=== PATIENT | male | born 1975 | race Caucasian/White ===

== ENCOUNTER 2019-01-27 13:10 | Emergency (ER) | payer OTHER, SELFPAY ==
[2019-01-27 13:11] VITALS: BP 126/80; PULSE 56; RESP 15; TEMP 36.2; O2SAT 97; BMI 25.0
--- NOTE | 2019-01-27 14:15 | CT_ITS ---
STUDY: CT ABDOMEN AND PELVIS WITH CONTRAST REASON FOR EXAM: Male, 43 years old. One-week history of abdominal pain. RADIATION DOSAGE (If Supplied By Facility): CTDIvol = ( 17.73 ) mGy, DLP = ( 1009.12 ) mGycm TECHNIQUE: Transaxial images were obtained from the dome of the diaphragm to the symphysis pubis without oral contrast. Isovue 300 100mL IV was administered. Sagittal and coronal images were reconstructed. Individualized dose optimization techniques were used for this CT. COMPARISON: None. FINDINGS: The visualized lung bases are unremarkable. The visualized portions of the heart are within normal limits. Normal liver. Normal gallbladder and extrahepatic biliary system. Normal spleen. Normal pancreas. Normal bilateral adrenal glands. 3 cm x 3 cm cyst in the lower pole of the right kidney. Normal left kidney. There is a retroaortic left renal vein. There is a small hiatal hernia. Normal small intestine. Normal colon. The appendix is visualized and appears normal. Normal abdominal aorta. Normal inferior vena cava. There is borderline retroperitoneal lymphadenopathy with enlarged nodes no greater than 10mm in the short axis diameter. Distended urinary bladder. There is a small umbilical hernia containing fat. Small left inguinal hernia containing fat. Normal osseous structures. CT/Abdomen/Pelvis W IV Cont ONLY IMPRESSION: Small umbilical hernia containing fat as well as a small left inguinal hernia containing fat. Distended urinary bladder. Electronically Signed: Law Navarro, at 15:56 EST , Service support ,
[2019-01-27] MEDS: 0.9% Normal Saline 1,000 ML 1000 ML IV (14:35)
[2019-01-27 14:48] LABS: Absolute Lymphocyte Count 1.92 X10^3/ul (0.83-4.51); Absolute Neutrophil Count 3.9 X10^3/uL (2.0-7.7); Basophil# 0.03 X10^3/uL; Basophil% 0.5 % (0-1); Eosinophil# 0.19 X10^3/uL; Eosinophils% 2.9 % (0-5); Hemoglobin 15.6 g/dl (13.0-16.5); Lymphocyte # 1.92 X10^3/ul (4.0); Lymphocyte % 28.9 % (19-41); Mean Corp Hgb Conc 33.9 g/gl (32-36); Mean Corpuscular Hgb 29.2 pg (27.0-32.0); Mean Corpuscular Volume 86.1 fL (80-94); Mean Platelet Vol. 9.9 fl (6.2-12.0); Monocyte# 0.57 X10^3/uL; Monocyte% 8.6 % (0-10); Neutrophil # 3.94 X10^3/uL (2.7-7.7); Neutrophil % 59.1 % (47-70); Platelet Count 247 K/mm3 (150-450); RBC Distribution Width CV 13.1 % (11.6-14.6); Red Blood Count 5.34 M/mm3 (4.6-6.2); White Blood Count 6.7 K/mm3 (4.4-11.0)
[2019-01-27 14:49] LABS: POSITIVE COUNT NO; POSITIVE DIFFERENTIAL NO; POSITIVE MORPHOLOGY NO
[2019-01-27 15:02] LABS: ALB/GLOB Ratio 1.1 RATIO (0.9-2.4); AST(SGOT) 32 U/L (15-37); Alanine Aminotransfer ALT/SGPT 28 U/L (16-61); Albumin, Serum 4.6 g/dL (3.2-5.0); Alkaline Phosphatase 77 U/L (45-117); Anion Gap 9 (5-15); BUN 19 mg/dL (7-18); BUN/Creat Ratio 20.5 RATIO (10-20); Calcium,Total 9.5 mg/dL (8.5-10.1); Chloride 100 mmol/L (98-107); Creatinine, Serum 0.93 mg/dL (0.70-1.30); EST Glomerular Filtration Rate 95 mL/min (>60); Est Glom Filt Rate - Afr Amer 115 mL/min (>60); Estimated Creatinine Clearance 116.94 ml/min; Globulin 4.2 g/dL (2.2-4.2); Glucose 88 mg/dL (74-106); Lipase 200 U/L (73-393); Protein, Total 8.8 g/dL (6.4-8.2); Sodium Level 139 mmol/L (136-145)
--- NOTE | 2019-01-27 15:46 | ED.DCSUM_ITS ---
- ER Visit Summary Date of Service: 01/27/19 Chief Complaint: Hernia History of Present Illness: The patient is a 43 M with a history of a hernia status post repair years ago. He presents with umbilical pain and can feel a mass. He is concerned for recurrent hernia. His PCP referred him the ED as he could not arrange outpatient follow-up emergently. He was concern for strangulation or incarceration. Patient also reports some anterior abdominal wall redness. This has been going on for several days. He denies applying heat or anything to the area. No other associated symptoms. Physical Examination: Afebrile and vital signs unremarkable. Alert and oriented. No acute distress. Heart regular rate and rhythm. Lungs clear. Abdomen tender in the umbilical region. There is a mobile mass approximately 1 cm in diameter. Nonreducible. There is erythema to his anterior abdominal wall. This is not confluent. There is no warmth or drainage. Otherwise exam unremarkable. Test Results: CBC, CMP, lipase unremarkable. CT pending. Emergency Department Course and Treatment: Patient was treated with IV fluids. He declined pain medicine. Labs were unremarkable. CT is pending and the oncoming doctor will check for mass, hernia, or any other issues. Regarding his abdominal wall redness. I do not believe this is directly related to a hernia. It does not appear to be cellulitis. His doctor thought it might be a dermatitis or irritation. I agree with this assessment. He may use topical remedies for this. Monitor for spreading redness, warmth, signs of infection. Follow-up with primary care for this issue. Patient does not have an established surgeon currently should he need a referral. Treatment Plan: As above Disposition: Pending CT results Impression: 1. Abdominal pain This note was generated with [employer] dictation software. It may contain incorrect words, spelling, and punctuation that were not noted in review of the chart prior to signing ED Disposition - Plan for ED Patient: Referrals: Jasson Vasquez MD [Primary Care Provider] -
[2019-01-27 15:56] VITALS: BP 130/84; PULSE 75; O2SAT 99
--- NOTE | 2019-01-27 16:45 | ED.DEP ---
ED Disposition - Plan for ED Patient: Disposition: Home or Assisted Living Instructions: ED Hernia Inguinal Referrals: Jasson Vasquez MD [Primary Care Provider] - As Needed Evelio Mendoza MD [STAFF PHYSICIAN] - As soon as possible Additional Instructions: Follow-up with Dr. Mendoza a local general surgeon at work for [facility] for evaluation of both your bellybutton hernia and your left groin hernia. Tylenol and Motrin for pain.
[2019-01-27 16:57] VITALS: PULSE 83; RESP 14
== END 2019-01-27 16:57 | disposition home or self-care (01) ==
PROVIDERS: Emergency Provider Emergency Medicine; Family Provider Family Medicine; PCP Family Medicine
DX: K42.9 Umbilical hernia without obstruction or gangrene (principal); K40.90 Unilateral inguinal hernia, without obstruction or gangrene, not specified as recurrent
CPT/HCPCS: 74177; 80053; 83690; 85025; 96360; 99283; J7030; Q9967; A4216

== ENCOUNTER → 2019-04-28 09:55 | Outpatient (CLI) | payer OTHER, SELFPAY ==
[2019-02-01 13:12] VITALS: BMI 25.0
[2019-05-05 08:31] LABS: Fats, Neutral Normal (.); Fats, Total Normal (.)
== END ==
PROVIDERS: Family Provider Family Medicine; PCP Family Medicine; Referring Provider Family Medicine; Visit Provider Family Medicine
DX: R19.7 Diarrhea, unspecified (principal)
CPT/HCPCS: 82705; 83630; 87177; 87209; 87493; 87506

== ENCOUNTER 2019-07-03 18:23 | Observation (INO) | payer OTHER, SELFPAY ==
[2019-02-01 13:12] VITALS: BMI 25.0
[2019-07-03] VITALS (7 sets, daily range): BP systolic 117–134; BP diastolic 74–89; PULSE 52–79; RESP 15–18; TEMP 36.4–36.6; O2SAT 97–100; BMI 23.9; BMI 23.8
--- NOTE | 2019-07-03 18:58 | EKG12_ITS ---
Test Reason : SYNCOPE Blood Pressure : / mmHG Vent. Rate : 051 BPM Atrial Rate : 051 BPM P-R Int : 162 ms QRS Dur : 112 ms QT Int : 422 ms P-R-T Axes : 060 021 023 degrees QTc Int : 388 ms Sinus bradycardia with Premature supraventricular complexes Early repolarization Otherwise normal ECG Confirmed by SEAN POTTS, YANET ([id number]), business editor MARLENI JOHNSON ([id number]) on 07/06/2019 10:21:16 AM Referred By: Milton Madrid Confirmed By:YANET ESTRADA MD
--- NOTE | 2019-07-03 18:58 | RAD_ITS ---
STUDY: X-RAY CHEST REASON FOR EXAM: Male, 44 years old. Syncope and asthma TECHNIQUE: Single frontal view of the chest. COMPARISON: None. FINDINGS: The lungs are clear and expanded. There is no demonstrated pleural abnormality. Normal size heart. Normal mediastinum and ellie. Normal visualized pulmonary arteries. Normal visualized aortic arch and descending thoracic aorta. Normal visualized thoracic spine. Normal visualized ribs, clavicles, and shoulders. There is no demonstrated abnormality of the visualized soft tissue structures of the upper abdomen. RAD/Chest 1 View (Portable) IMPRESSION: Normal x-ray examination of the chest. Electronically Signed: Emil Waldron MD at 19:25 EDT , Service support ,
--- NOTE | 2019-07-03 18:58 | CT_ITS ---
STUDY: CT BRAIN WITHOUT CONTRAST REASON FOR EXAM: Male, 44 years old. Syncope and left-sided head laceration RADIATION DOSAGE (If Supplied By Facility): CTDIvol = ( 44.99 ) mGy, DLP = ( 779.24 ) mGycm TECHNIQUE: Transaxial CT imaging of the brain was performed without administration of intravenous contrast material. Individualized dose optimization techniques were used for this CT. COMPARISON: No relevant priors. FINDINGS: Normal soft tissue structures. Normal calvarium. Normal size ventricles and extra-axial spaces for the patient's age. Normal white matter tracts of the cerebral hemispheres. Normal basal ganglia and thalami. Normal brainstem. Normal cerebellum. There is no intracranial hemorrhage. There are no findings of an acute ischemic infarction. Normal visualized paranasal sinuses. CT/Brain/Head without Contrast IMPRESSION: Normal unenhanced CT scan of the brain. Electronically Signed: Emil Waldron MD at 19:53 EDT , Service support ,
[2019-07-03] MEDS: 0.9% Normal Saline 1,000 ML 1000 ML IV (19:00)
[2019-07-03 19:22] LABS: Absolute Lymphocyte Count 2.11 X10^3/uL (0.83-4.51); Absolute Neutrophil Count 7.2 X10^3/uL (2.0-7.7); Basophil# 0.05 X10^3/uL; Basophil% 0.5 % (0-1); Hematocrit 44.6 % (40-54); Hemoglobin 15.2 g/dL (13.0-16.5); Lymphocyte # 2.11 X10^3/ul (4.0); Lymphocyte % 20.6 % (19-41); Mean Corp Hgb Conc 34.1 g/dL (32-36); Mean Corpuscular Hgb 28.8 pg (27.0-32.0); Mean Corpuscular Volume 84.6 fL (80-94); Mean Platelet Vol. 9.9 fl (6.2-12.0); Monocyte# 0.75 X10^3/uL; Monocyte% 7.3 % (0-10); NRBC Flagged by Analyzer 0 % (0-5); Neutrophil % 70.4 % (47-70); Platelet Count 262 K/mm3 (150-450); RBC Distribution Width CV 13.1 % (11.6-14.6); RBC Distribution Width SD 40.2 fl (35.1-43.9); Red Blood Count 5.27 M/mm3 (4.6-6.2); White Blood Count 10.2 K/mm3 (4.4-11.0)
[2019-07-03 19:36] LABS: D-Dimer Quantitative (DVT/PE) 0.66 FEU/ug/m (0.27-0.49)
[2019-07-03 19:38] LABS: Anion Gap 5 (5-15); BUN 19 mg/dL (7-18); BUN/Creat Ratio 14.1 RATIO (10-20); Calcium,Total 9.5 mg/dL (8.5-10.1); Chloride 102 mmol/L (98-107); Creatinine, Serum 1.35 mg/dL (0.70-1.30); EST Glomerular Filtration Rate 61 mL/min (>60); Est Glom Filt Rate - Afr Amer 74 mL/min (>60); Estimated Creatinine Clearance 82.03 ml/min; Glucose 117 mg/dL (74-106); Potassium 3.9 mmol/L (3.5-5.1); Sodium Level 136 mmol/L (136-145)
[2019-07-03] MEDS: Diphth,Pertuss(Acell),Tet Vac 0.5 ML Vial IM (19:39)
--- NOTE | 2019-07-03 19:43 | CT_ITS ---
STUDY: CTA CHEST REASON FOR EXAM: Male, 44 years old. Syncope RADIATION DOSAGE (If Supplied By Facility): CTDIvol = ( 9.44 ) mGy, DLP = ( 343.90 ) mGycm TECHNIQUE: The examination was performed with the intravenous administration of 100 IV Isovue 370. Post-processing of the angiographic images was performed, with multiplanar reformation and 3D reconstruction. Individualized dose optimization techniques were used for this CT. COMPARISON: Chest x-ray from today FINDINGS: Normal enhancement of the main pulmonary artery and right and left pulmonary arteries. Normal enhancement of the bilateral peripheral pulmonary arteries. There is no demonstrated pulmonary embolism. Normal thoracic aorta and visualized great vessels. There is no demonstrated aortic dissection. Normal heart and pericardium. Calcific coronary artery disease. Normal mediastinum. Normal hilar regions. Normal visualized trachea and bronchi. The lungs are well expanded. Normal pulmonary parenchyma. Normal pleura. Normal chest wall structures. Normal osseous structures. Normal visualized upper abdomen. CT/CTA Chest W/WO Contrast IMPRESSION: Calcific coronary artery disease. No acute disease. Electronically Signed: Emil Waldron MD at 21:03 EDT , Service support ,
[2019-07-03] MEDS: Aspirin 81 MG TAB.CHEW 324 MG PO (21:53)
--- NOTE | 2019-07-03 22:20 | PCM.HP.STD ---
Problem List (1) Syncope and collapse Status: Acute (2) Laceration on head Status: Acute (3) History of allergy, EpiPen Status: Chronic (4) Asthma Status: Chronic History of Present Illness Date of Admission: 07/03/19 Chief Complaint: Syncope and collapse. The patient is a 44 year old M with history of asthma was brought into ER after he had syncope and collapse in [facility]. Prior to that, patient had 50 miles bike right and felt dizzy about 5 to 10 minutes prior to passing out. Total duration of syncope is unclear or probably short seconds to minutes. Patient fell and hit the head and had a small laceration about 1 cm with surrounding edema in the left parieto-occipital region. No chest pain. When patient woke up, he was having sweats and felt like dreaming otherwise no significant symptoms like involuntary movement, seizure-like, urinary or fecal incontinence, chest pain, shortness of breath or palpitations/irregular heart Patient had prior syncope in March 2019 after he was having diarrhea for 5 days and 1 of his friend had Salmonella infection at that time. He denies lower urinary tract symptoms, nausea vomiting or diarrhea. [] Past Medical History Past Medical History (Chronic Problems): Chronic Problems (Last Updated 02/01/19 @ 13:11 by Mariposa Barahona) History of allergy, EpiPen (Chronic) Asthma (Chronic) Medical History: Medical History (Last Updated 02/01/19 @ 13:11 by Mariposa Barahona) Anxiety and depression F41.9, F32.9 Celiac disease K90.0 Exercise-induced asthma J45.990 Left inguinal hernia K40.90 Umbilical hernia K42.9 Allergies legumes Allergy (Verified 07/03/19 18:27) Unknown peanut Allergy (Verified 07/03/19 18:27) Anaphylaxis Home Medications: Ambulatory Orders Medication Instructions Recorded Epi Pen (for allergic rxn) [Epi 0.3 mg IM X1 #2 syringe 10/11/14 Pen] Montelukast [Singulair] 10 mg PO DAILY 10/11/14 Albuterol IH (ProAir) [Proair Hfa] 1 puff PO Q4H PRN 01/27/19 Sertraline HCl 50 mg PO DAILY 01/27/19 cholecalciferol (vitamin D3) 50,000 unit PO QWEEK 02/01/19 50,000 unit capsule multivitamin tablet 1 tab PO DAILY 02/01/19 zinc 50 mg tablet 50 mg PO DAILY 02/01/19 Lactobacillus Combo No.10 1 ea PO DAILY 07/03/19 [Probiotic] Surgical History: Surgical History (Last Updated 02/01/19 @ 13:08 by Mariposa Barahona) History of esophagogastroduodenoscopy (EGD) Z98.890 History of umbilical hernia repair Z98.890, Z87.19 History of wisdom tooth extraction K08.409 Smoking Status: Former smoker - *Family History Paternal Family History: Family History (Last Updated 02/01/19 @ 13:09 by aMriposa Barahnoa) Father Heart disease Myocardial infarction Mother Celiac disease Sister Celiac disease Review of Systems Constitutional: Denies: Chills, Fever, Weight Change HEENT: Denies: Head Aches, Sinus Congestion, Sinus Drainage Cardiovascular: Reports: Syncope. Denies: Chest Pain, Palpitations Respiratory: Denies: Cough, Shortness of breath at rest, Sputum production Gastrointestinal: Reports: Nausea. Denies: Abdominal Pain, Vomiting Genitourinary: Denies: Dysuria Musculoskeletal: Denies: Joint Pain, Joint Tenderness Skin: Reports: Wounds. Denies: Rash Neurological: Denies: Numbness, Tingling, Focal weakness Psychiatric: Denies: Anxiety, Depression, Homicidal Ideations, Suicidal Ideations Hematologic/ Lymphatic: Denies: Easy Bruising, Easy Bleeding VTE Information - Inpt Only VTE Present on Admission: No VTE Mechan Device Prophylaxis: None VTE Pharm Prophylaxis ordered?: Yes Patient Problems: Active and Suspected Problems (Last Updated 02/01/19 @ 13:11 by Mariposa Barahona) Syncope and collapse (Acute) Laceration on head (Acute) - Physical Exam General: Alert, Oriented x3, Cooperative HEENT: Atraumatic, PERRLA, EOMI, Normocephalic Oral: No Gingival or Mucosal Lesions/ Ulcerations, Dry Mucosa Neck: Supple, No JVD, Negative Carotid Bruits Lungs: Clear to auscultation, Normal air movement, No rhonchi, No wheeze, No rales Cardiovascular: Regular rate, Regular Rhythm, Normal S1, Normal S2, No murmurs Abdomen: Bowel Sounds Present, Soft, Non Tender, Non-Distended Extremities: No edema, Capillary Refill Less than 3 Seconds Skin: No rashes, Ulcer/ Wound - Small laceration about 1 cm left parieto-occipital region of his scalp. It was stapled in ER Musculoskeletal: No Tenderness to Palpation of Joints or Extremities, Arthritic Changes Lymphatic: No Cervical, Supraclavicular, or Inguinal Adenopathy Neurological: Cranial nerves II-XII grossly intact, Deep Tendon Reflexes 2+/4 and Symmetrical, Neuro grossly intact, Motor Exam 5/5 strength throughout Psych/Mental Status: Normal Affect, Appropriate Vital Signs Temp Pulse Resp BP Pulse Ox 97.9 F 66 18 117/81 H 97 07/03/19 18:24 07/03/19 21:41 07/03/19 21:41 07/03/19 21:41 07/03/19 21:41 Oxygen Delivery Method Room Air Weight: 186 lb 11.704 oz Body Mass Index (BMI) 23.9 Laboratory Tests Past 24 Hrs 07/03/19 07/03/19 07/03/19 19:14 19:14 19:14 WBC 10.2 RBC 5.27 Hgb 15.2 Hct 44.6 MCV 84.6 MCH 28.8 MCHC 34.1 RDW Std Deviation 40.2 RDW Coeff of Kenneth 13.1 Plt Count 262 MPV 9.9 Immature Gran % (Auto) 0.200 Neut % (Auto) 70.4 H Lymph % (Auto) 20.6 Caroline % (Auto) 7.3 Eos % (Auto) 1.0 Baso % (Auto) 0.5 Absolute Neuts (auto) 7.2 Absolute Lymphs (auto) 2.11 Nucleated RBC % 0 D-Dimer Quant (PE/DVT) 0.66 H* Sodium 136 Potassium 3.9 Chloride 102 Carbon Dioxide 29.0 Anion Gap 5 BUN 19 H Creatinine 1.35 H Estim Creat Clear Calc 82.03 Est GFR (MDRD) Af Amer 74 Est GFR (MDRD) Non-Af 61 BUN/Creatinine Ratio 14.1 Glucose 117 H Calcium 9.5 Troponin I 0.208 H Assessment/Plan All Active Problems (Last Updated 02/01/19 @ 13:11 by Mariposa Barahona) Syncope and collapse (Acute) Laceration on head (Acute) This is a 44-year-old gentleman is being admitted for syncope of short duration and collapse with a small laceration wound over left parieto-occipital region. 1. Syncope and collapse, etiology unclear possible vasovagal: Patient is being admitted in PCU. Patient had elevated d-dimer and CTPA was done which is negative. Incidental finding of calcific coronary artery disease found. No acute disease no PE. Troponin is elevated 0.2. Serial cardiac enzymes. 2D echo ordered for tomorrow a.m. Orthostatic blood pressure does not show any major change but heart rate went up from 59 lying position to 79 in the standing position. This does not meet criteria for POTS but possible secondary to dehydration. 2. Mild prerenal azotemia with dehydration: BUN/creatinine 19/135 with mild prerenal azotemia. Previous creatinine was 0.93 in 12/2018. IV fluid normal saline at 150 mils per hour for total of 2 L. Patient already got 1 L of normal 7 bolus in ED. 3. Elevated troponin: Serial troponin enzymes rest as mentioned above. His father has a history of coronary artery disease. 4. Other comorbidities include history of asthma and allergy: Home medications continued. Patient is on albuterol inhaler, Singulair, EpiPen and multivitamin. DVT prophylaxis: On Lovenox 40 mg subcu daily. Laboratory Results 07/03/19 19:14: WBC 10.2, RBC 5.27, Hgb 15.2, Hct 44.6, MCV 84.6, MCH 28.8, MCHC 34.1, RDW Std Deviation 40.2, RDW Coeff of Kenneth 13.1, Plt Count 262, MPV 9.9, Immature Gran % (Auto) 0.200, Neut % (Auto) 70.4 H, Lymph % (Auto) 20.6, Caroline % (Auto) 7.3, Eos % (Auto) 1.0, Baso % (Auto) 0.5, Absolute Neuts (auto) 7.2, Absolute Lymphs (auto) 2.11, Nucleated RBC % 0 07/03/19 19:14: D-Dimer Quant (PE/DVT) 0.66 H* 07/03/19 19:14: Sodium 136, Potassium 3.9, Chloride 102, Carbon Dioxide 29.0, Anion Gap 5, BUN 19 H, Creatinine 1.35 H, Estim Creat Clear Calc 82.03, Est GFR (MDRD) Af Amer 74, Est GFR (MDRD) Non-Af 61, BUN/Creatinine Ratio 14.1, Glucose 117 H, Calcium 9.5, Troponin I 0.208 H Clinical Impression(s) from Imaging Studies Brain CT 07/03/19 18:58 IMPRESSION: Normal unenhanced CT scan of the brain. Chest X-Ray 07/03/19 18:58 IMPRESSION: Normal x-ray examination of the chest. Chest CTA 07/03/19 19:43 IMPRESSION: Calcific coronary artery disease. No acute disease. Code Visit OBSV E&M: 64097 Initial observation care L3
--- NOTE | 2019-07-03 22:28 | ED.DCSUM_ITS ---
- ER Visit Summary Date of Service: 07/03/19 Chief Complaint: Syncope History of Present Illness: The patient is a 44 M who presents after syncopal episode. The patient is previously healthy. He rides his bike frequently. He rode 50 miles today and had no issue. Afterwards he had some light activities. [email or web address] He was partway through his order when he lost consciousness. He fell and hit his head. He has a mild scalp laceration. No seizure activity. No other associated symptoms. He had recent travel to [place]. Denies any history of heart disease, PE, aortic disease. Physical Examination: Afebrile and vital signs unremarkable except heart rate was 63. Heart regular rate and rhythm. Lungs clear. Abdomen soft and nontender. Extremities unremarkable. He has a 1 center meter left scalp laceration. Cranial nerves grossly intact. Normal strength and sensation. Test Results: EKG showed a heart rate of 51, sinus rhythm with PACs. CBC unremarkable. Creatinine 1.35. Troponin 0 0.208. D-dimer 0.66. Chest x-ray was normal. Brain CT normal. CTA chest showed calcified coronary disease Emergency Department Course and Treatment: Patient had an EKG and was placed on a monitor. Orthostatics were negative. He was treated with IV fluids. Wound was cleaned and repaired with one single staple. D-dimer was elevated so CTA was performed. This showed coronary disease. He was treated with aspirin. Troponin was 0.208. He has a family history of coronary disease. Patient will be admitted for further care. Treatment Plan: As above Disposition: Admission Impression: 1. Syncope 2. Scalp laceration 1 cm This note was generated with [employer] dictation software. It may contain incorrect words, spelling, and punctuation that were not noted in review of the chart prior to signing ED Disposition - Plan for ED Patient: Disposition: Acute Care [facility]
--- NOTE | 2019-07-03 23:21 | EKG12_ITS ---
Test Reason : SYNCOPE Blood Pressure : / mmHG Vent. Rate : 057 BPM Atrial Rate : 057 BPM P-R Int : 156 ms QRS Dur : 108 ms QT Int : 420 ms P-R-T Axes : 065 006 030 degrees QTc Int : 408 ms Sinus bradycardia Early repolarization Otherwise normal ECG Confirmed by SEAN POTTS, YANET ([id number]), department editor MARLENI JOHNSON ([id number]) on 07/06/2019 2:24:09 PM Referred By: Milton Madrid Confirmed By:YANET ESTRADA MD
[2019-07-03] MEDS: Enoxaparin 40 MG/0.4 ML Syringe SC (23:41)
[2019-07-03] MEDS: 0.9% Normal Saline 1,000 ML 150 ML IV (23:41)
[2019-07-04 02:48] VITALS: BP 105/57; PULSE 54; RESP 16; TEMP 36.4; O2SAT 96
[2019-07-04 03:00] VITALS: PULSE 50
--- NOTE | 2019-07-04 05:55 | ECHOD_ITS ---
Reason For Study: SYNCOPE Procedure This was a 2D Doppler, Color Flow transthoracic echocardiogram. The exam was of adequate technical quality. Exam performed portable in patient room. Left Ventricle Normal LV size. Left ventricular systolic function is normal. The estimated ejection fraction is 55 %. No evidence for diastolic dysfunction. No regional wall motion abnormalities noted. Right Ventricle Normal RV size. Normal systolic function. Atria The left atrium is mildly enlarged. Normal right atrium. No doppler evidence for ASD. Mitral Valve There is no mitral annular calcification. Normal mitral valve. Trivial mitral valve insufficiency. Tricuspid Valve Normal tricuspid valve. Mild tricuspid valve insufficiency. Right ventricular systolic pressure estimated to be 25 mmHg. Aortic Valve Trisinus/trileaflet aortic valve. Normal aortic valve. Pulmonic Valve The pulmonic valve is not well visualized. Great Vessels Normal sized aortic root. Pericardium/Pleural No pericardial effusion. MMode/2D Measurements & Calculations LVIDd: 5.3 cm IVSd: 0.80 cm Ao root diam: 2.8 cm LVIDs: 3.6 cm LVPWd: 0.93 cm RVDd: 4.7 cm FS: 32.4 % LAV(MOD-bp): 76.7 ml LA A4 area: 24.3 cm2 LA dimension(2D): 4.2 cm LAV(MOD-bp) Indexed: 37.3 ml/m2 LAV(MOD-sp2): 65.2 ml LAV(MOD-sp4): 73.1 ml RA A4 area: 22.8 cm2 Time Measurements MV dec time: 0.24 sec Doppler Measurements & Calculations MV E max michael: 80.3 cm/sec Lat Peak E' Michael: 16.7 cm/sec Med Peak E' Michael: 14.7 cm/sec MV A max michael: 40.5 cm/sec E/E' lat: 4.8 E/E' med: 5.5 MV E/A: 2.0 Ao V2 max: 144.6 cm/sec LV V1 max: 124.0 cm/sec PA V2 max: 100.0 cm/sec Ao max P.4 mmHg LV V1 max P.1 mmHg TR max michael: 234.1 cm/sec TR max P.0 mmHg Interpretation Summary Left ventricular systolic function is normal. The estimated ejection fraction is 55 %. The left atrium is mildly enlarged. Trivial mitral valve insufficiency. Mild tricuspid valve insufficiency. Right ventricular systolic pressure estimated to be 25 mmHg. No evidence for diastolic dysfunction. Ordering Physician: Milton Madrid Referring Physician: MARCE GARCIA Performed By: Lesli Soliman, RENETTA, RVT
[2019-07-04] MEDS: 0.9% Normal Saline 1,000 ML 150 ML IV (06:15)
[2019-07-04 06:39] LABS: Anion Gap 7 (5-15); BUN 15 mg/dL (7-18); BUN/Creat Ratio 17.8 RATIO (10-20); Calcium,Total 8.6 mg/dL (8.5-10.1); Chloride 105 mmol/L (98-107); Creatinine, Serum 0.84 mg/dL (0.70-1.30); EST Glomerular Filtration Rate 105 mL/min (>60); Est Glom Filt Rate - Afr Amer 127 mL/min (>60); Estimated Creatinine Clearance 128.15 ml/min; Glucose 92 mg/dL (74-106); Sodium Level 140 mmol/L (136-145)
[2019-07-04 06:58] VITALS: O2SAT 94
[2019-07-04 08:00] VITALS: BP 111/71; BP 113/63; BP 117/69; PULSE 61; PULSE 62; PULSE 65
[2019-07-04 08:02] VITALS: BP 116/62; PULSE 62; RESP 16; TEMP 36.8; O2SAT 99
--- NOTE | 2019-07-04 11:05 | DCINST_ITS ---
- Discharge Diagnoses Current Active Problems: Current Active and Chronic Problems (Last Updated 02/01/19 @ 13:11 by Mariposa Barahona) Syncope and collapse (Acute) Laceration on head (Acute) History of allergy, EpiPen (Chronic) Asthma (Chronic) Reason(s) for Visit for Discharge Instructions: Syncope You will use the following diet at home:: Regular Your food should be the consistency of: Regular Your liquids should be the consistency of: Regular/Thin Discharge Activity: Return to Normal Activity Additional Instructions: Continue to hydrate yourself. Follow-up with your primary care doctor within a week or 2. Follow-up with cardiology as scheduled. Allergies/Adverse Reactions: Allergies legumes Allergy (Verified 07/03/19 18:27) Unknown peanut Allergy (Verified 07/03/19 18:27) Anaphylaxis Medications to take at Discharge Epi Pen (for allergic rxn) 0.3 mg IM X1 #2 syringe 10/11/14 Montelukast [Singulair] 10 mg PO DAILY 10/11/14 Albuterol IH (ProAir) [Proair Hfa] 1 puff PO Q4H PRN 01/27/19 Sertraline HCl 50 mg PO DAILY 01/27/19 cholecalciferol (vitamin D3) 50,000 unit capsule 2,000 unit PO QHS 02/01/19 multivitamin tablet 1 tab PO DAILY 02/01/19 zinc 50 mg tablet 50 mg PO DAILY 02/01/19 Lactobacillus Combo No.10 [Probiotic] 1 ea PO DAILY 07/03/19 Primary Care Physician: Jasson Vasquez MD [Primary Care Provider] - Please follow up with your Primary Care Physician in: within 1-2 weeks Test Results: Test results from this visit will be discussed in further detail at your follow- up appointment, if applicable. Please Follow Up With: Perlita Soto MD When: within 1-2 weeks Proposed Discharge Date: 07/04/19
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
--- NOTE | 2019-07-04 12:53 | CASEMGMT ---
Patient has advance directives and he is aware they are not on file at [facility]. Mahnaz MCGINNIS MSW
== END 2019-07-04 11:04 | disposition home or self-care (01) ==
LOC: ED 19:01 → PCU 22:00
PROVIDERS: Admitting Provider Internal Medicine; Emergency Provider Emergency Medicine; Family Provider Family Medicine; PCP Family Medicine; Referring Provider Internal Medicine; Visit Provider Internal Medicine
DX: R55 Syncope and collapse (principal); E86.0 Dehydration; N18.9 Chronic kidney disease, unspecified; Z23 Encounter for immunization; F32.9 Major depressive disorder, single episode, unspecified; F41.9 Anxiety disorder, unspecified; J45.990 Exercise induced bronchospasm; I25.10 Atherosclerotic heart disease of native coronary artery without angina pectoris; K90.0 Celiac disease; S01.01XA Laceration without foreign body of scalp, initial encounter; W19.XXXA Unspecified fall, initial encounter; Y93.89 Activity, other specified; Y92.511 Restaurant or cafe as the place of occurrence of the external cause; Z79.899 Other long term (current) drug therapy; Z87.891 Personal history of nicotine dependence; Z82.49 Family history of ischemic heart disease and other diseases of the circulatory system
CPT/HCPCS: 12001; 36415; 70450; 71045; 71275; 80048; 84484; 85025; 85379; 90471; 90715; 93005; 93306; 96360; 96361; 96372; 97802; 99218; 99285; J7030; Q9967; G0378

== ENCOUNTER → 2019-07-27 08:04 | Outpatient (CLI) | payer OTHER, SELFPAY ==
[2019-07-20 13:22] VITALS: BMI 24.0
[2019-07-27 09:19] LABS: Cholesterol 169 mg/dL (200); High Density Lipoprotein 74 mg/dL; Triglycerides 84 mg/dL; Very Low Density Lipoprotein 17 mg/dL (5-40)
== END ==
PROVIDERS: Family Provider Family Medicine; PCP Family Medicine; Referring Provider Specialist; Visit Provider Specialist
DX: E78.00 Pure hypercholesterolemia, unspecified (principal)
CPT/HCPCS: 36415; 80061

== ENCOUNTER 2020-06-16 11:08 | Emergency (ER) | payer OTHER, SELFPAY ==
[2019-10-12 10:30] VITALS: BMI 24.0
[2020-06-16 11:09] VITALS: PULSE 75; RESP 24; TEMP 35.4; O2SAT 88; BMI 25.3
[2020-06-16 11:13] VITALS: O2SAT 94
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
[2020-06-16 11:17] VITALS: BP 130/91
--- NOTE | 2020-06-16 11:17 | EKG12_ITS ---
Test Reason : Blood Pressure : / mmHG Vent. Rate : 062 BPM Atrial Rate : 062 BPM P-R Int : 146 ms QRS Dur : 112 ms QT Int : 424 ms P-R-T Axes : 036 008 019 degrees QTc Int : 430 ms Normal sinus rhythm with sinus arrhythmia Normal ECG Confirmed by KYLE POTTS, WILLIAMS ([id number]), editor & co founder MARLENI JOHNSON ([id number]) on 06/19/2020 9:24:41 AM Referred By: SCOT Confirmed By:WILLIAMS WIRGHT MD
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
[2020-06-16] MEDS: 0.9% Normal Saline 1,000 ML 999 ML IV (11:20)
[2020-06-16] MEDS: Ondansetron 4 MG/2 ML Vial IV (11:25)
[2020-06-16] MEDS: fentaNYL 100 MCG/2 ML Ampul 50 MCG IV (11:25)
[2020-06-16 11:28] LABS: Absolute Lymphocyte Count 4.02 X10^3/uL (0.83-4.51); Absolute Neutrophil Count 4.1 X10^3/uL (2.0-7.7); Basophil# 0.06 X10^3/uL; Basophil% 0.7 % (0-1); Eosinophil# 0.18 X10^3/uL; Hematocrit 45.3 % (40-54); Hemoglobin 15.2 g/dL (13.0-16.5); Lymphocyte # 4.02 X10^3/ul (4.0); Lymphocyte % 44.1 % (19-41); Mean Corp Hgb Conc 33.6 g/dL (32-36); Mean Corpuscular Hgb 29.1 pg (27.0-32.0); Mean Corpuscular Volume 86.8 fL (80-94); Mean Platelet Vol. 9.7 fl (6.2-12.0); Monocyte# 0.68 X10^3/uL; Monocyte% 7.5 % (0-10); NRBC Flagged by Analyzer 0 % (0-5); Neutrophil # 4.12 X10^3/uL (2.7-7.7); Platelet Count 335 K/mm3 (150-450); RBC Distribution Width CV 12.6 % (11.6-14.6); RBC Distribution Width SD 39.7 fl (35.1-43.9); Red Blood Count 5.22 M/mm3 (4.6-6.2); White Blood Count 9.1 K/mm3 (4.4-11.0)
[2020-06-16] MEDS: Diphth,Pertuss(Acell),Tet Vac 0.5 ML Vial IM (11:30)
[2020-06-16 11:31] LABS: International Normalized Ratio 0.9; Partial Thromboplast Time 23.6 Seconds (24.1-36.2); Prothrombin Time (Protime)PT. 11.8 SECONDS (11.7-14.9)
[2020-06-16 11:42] LABS: Anion Gap 7 (5-15); BUN 27 mg/dL (7-18); BUN/Creat Ratio 20.8 RATIO (10-20); Calcium,Total 9.3 mg/dL (8.5-10.1); Chloride 109 mmol/L (98-107); EST Glomerular Filtration Rate 64 mL/min (>60); Est Glom Filt Rate - Afr Amer 77 mL/min (>60); Estimated Creatinine Clearance 81.95 ml/min; Glucose 167 mg/dL (74-106); Potassium 3.6 mmol/L (3.5-5.1); Sodium Level 142 mmol/L (136-145)
[2020-06-16] MEDS: Morphine 4 MG/ML Syringe IV ×2 (12:23→13:11)
[2020-06-16 12:25] VITALS: BP 140/89; PULSE 67; RESP 26; O2SAT 98
[2020-06-16] MEDS: Lidocaine 5% Patch 1 PATCH TOPICAL (13:26)
[2020-06-16 13:39] VITALS: BP 140/98; PULSE 67; RESP 26; TEMP 35.4; O2SAT 98
== END 2020-06-16 13:40 | disposition short-term general hospital (02) ==
PROVIDERS: Emergency Provider Emergency Medicine; PCP Family Medicine
DX: S42.021A Displaced fracture of shaft of right clavicle, initial encounter for closed fracture (principal); S22.41XA Multiple fractures of ribs, right side, initial encounter for closed fracture; V19.88XA Pedal cyclist (driver) (passenger) injured in other specified transport accidents, initial encounter; Y93.55 Activity, bike riding; Y92.410 Unspecified street and highway as the place of occurrence of the external cause; Y99.8 Other external cause status; Z87.891 Personal history of nicotine dependence
CPT/HCPCS: 70450; 71045; 71260; 72125; 72170; 73000; 73030; 74177; 80048; 85025; 85610; 85730; 86850; 86900; 86901; 90715; 93005; 96361; 96374; 96375; 96376; 99285; J7030; Q9967; A4216; J2405

== ENCOUNTER → 2021-05-29 09:59 | Outpatient (CLI) | payer OTHER, SELFPAY ==
[2020-10-17 11:08] VITALS: BMI 25.4
[2021-05-29 12:34] LABS: ALB/GLOB Ratio 1.1 RATIO (0.9-2.4); AST(SGOT) 28 U/L (15-37); Alanine Aminotransfer ALT/SGPT 27 U/L (16-61); Alkaline Phosphatase 78 U/L (45-117); Anion Gap 5 (5-15); BUN 17 mg/dL (7-18); BUN/Creat Ratio 22.7 RATIO (10-20); Calcium,Total 8.7 mg/dL (8.5-10.1); Chloride 104 mmol/L (98-107); Cholesterol 176 mg/dL (200); Creatinine, Serum 0.75 mg/dL (0.70-1.30); EST Glomerular Filtration Rate 120 mL/min (>60); Est Glom Filt Rate - Afr Amer 145 mL/min (>60); Globulin 3.7 g/dL (2.2-4.2); Glucose 74 mg/dL (74-106); High Density Lipoprotein 64 mg/dL; Potassium 4.1 mmol/L (3.5-5.1); Protein, Total 7.7 g/dL (6.4-8.2); Sodium Level 138 mmol/L (136-145); Triglycerides 193 mg/dL; Very Low Density Lipoprotein 39 mg/dL (5-40)
[2021-05-29 13:16] LABS: Hemoglobin A1c 5.6 % (3.8-5.6)
== END ==
PROVIDERS: PCP Family Medicine; Visit Provider Family Medicine
DX: R73.09 Other abnormal glucose (principal)
CPT/HCPCS: 36415; 80053; 80061; 83036

== ENCOUNTER → 2021-11-26 11:18 | Outpatient (CLI) | payer OTHER, SELFPAY ==
[2021-11-26 12:47] LABS: Hemoglobin A1c 5.5 % (3.8-5.6)
[2021-11-26 12:53] LABS: ALB/GLOB Ratio 1.1 RATIO (0.9-2.4); AST(SGOT) 31 U/L (15-37); Alanine Aminotransfer ALT/SGPT 37 U/L (16-61); Albumin, Serum 4.1 g/dL (3.2-5.0); Alkaline Phosphatase 64 U/L (45-117); Anion Gap 7 (5-15); BUN 17 mg/dL (7-18); BUN/Creat Ratio 20.8 RATIO (10-20); Calcium,Total 9.5 mg/dL (8.5-10.1); Chloride 101 mmol/L (98-107); Creatinine, Serum 0.82 mg/dL (0.70-1.30); EST Glomerular Filtration Rate 108 mL/min (>60); Est Glom Filt Rate - Afr Amer 131 mL/min (>60); Globulin 3.9 g/dL (2.2-4.2); Glucose 91 mg/dL (74-106); Potassium 3.9 mmol/L (3.5-5.1); Sodium Level 139 mmol/L (136-145); Vitamin D,25 Hydroxy 44.3 ng/mL
== END ==
PROVIDERS: PCP Family Medicine; Visit Provider Family Medicine
DX: R73.09 Other abnormal glucose (principal); E55.9 Vitamin D deficiency, unspecified
CPT/HCPCS: 36415; 80053; 82306; 83036

== ENCOUNTER → 2022-06-16 | Outpatient (CLI) | payer OTHER, SELFPAY ==
[2022-06-16 17:41] LABS: Erythrocyte Sedimentation Rate 5 mm/hr (0-20)
== END | disposition home or self-care (01) ==
LOC: MFPLAB 15:51
PROVIDERS: PCP Family Medicine; Visit Provider Nurse Practitioner Family
DX: R53.83 Other fatigue (principal)
CPT/HCPCS: 36415; 85652

== ENCOUNTER → 2022-07-04 | Outpatient (CLI) | payer OTHER, SELFPAY ==
--- NOTE | 2022-07-04 09:43 | STRESSREP_ITS ---
Stress Test Report Date: 07-04-2022 Procedure: Exercise tolerance test/imaging study Indications: Chest pain; syncope Consent: Per the patient Procedure: The patient exercised on a David protocol for 13 minutes completing Stage IV and 1 minute of Stage V achieving a peak heart rate of 171 bpm (98% predicted maximal heart rate) with a peak blood pressure 174/90 mmHg and a peak MET capacity of 17 METs. The baseline ECG demonstrated sinus bradycardia. The peak exercise ECG demonstrated somatic/motion artifact with no obvious ECG changes. There were no cardiac dysrhythmias pretest, during exercise, or recovery. The functional capacity was considered excellent. There was no complaint of chest discomfort during exercise or recovery. The examination was discontinued secondary to dyspnea. Impression: 1. Technically adequate (percent predicted maximal heart rate greater than 85%) exercise tolerance test 2. Peak exercise ECG with somatic/motion artifact with no obvious ECG change 3. There were no cardiac dysrhythmias pretest, during exercise, or recovery 4. Nuclear images pending Myocardial perfusion imaging study: Technique: The patient was injected with 12.0 mCi of technetium 99m Cardiolite and subsequently rest SPECT Cardiolite nuclear imaging was obtained in the horizontal long, vertical long, and short axis views. The patient exercised on a David protocol for 13 minutes completing Stage IV and 1 minute of Stage V achieving a peak heart rate of 171 bpm (98% predicted maximal heart rate) with a peak blood pressure 174/90 mmHg and a peak MET capacity of 17 METs. The patient was injected with 35.3 mCi of technetium 99m Cardiolite and subsequently stress SPECT Cardiolite nuclear imaging was obtained in the horizontal long, vertical long, and short axis views. A gated Cardiolite study at peak stress was obtained. Interpretation: Rest and stress SPECT Cardiolite nuclear imaging status post realignment, normalization, and attenuation correction, demonstrates the appearance of relative uniform tracer uptake and myocardial perfusion appearing within normal limits. There is end systolic thickening and brightening. The gated Cardiolite study demonstrates myocardial thickening and inward wall motion. The reported LVEF is 60%. Impression: 1. Rest and stress SPECT Cardiolite nuclear imaging demonstrate relative u niform tracer uptake and myocardial perfusion appearing within normal limits. 2. The gated Cardiolite study reports an LVEF of 60%. This note was generated with [email or web address] software. It may contain incorrect words, spelling, and punctuation that were not noted in checking the note before signing.
== END | disposition home or self-care (01) ==
LOC: CVS 07:26
PROVIDERS: PCP Family Medicine; Referring Provider Physician Assistant Medical; Visit Provider Physician Assistant Medical
DX: R07.9 Chest pain, unspecified (principal); I25.10 Atherosclerotic heart disease of native coronary artery without angina pectoris; I25.84 Coronary atherosclerosis due to calcified coronary lesion
CPT/HCPCS: 78452; 93017; A9500; A4216

== ENCOUNTER → 2022-08-01 | Outpatient (CLI) | payer OTHER, SELFPAY | END | disposition home or self-care (01) | LOC: SL 10:19 | PROVIDERS: PCP Family Medicine; Referring Provider Nurse Practitioner Family; Visit Provider Nurse Practitioner Family | DX: R06.83 Snoring (principal); G47.20 Circadian rhythm sleep disorder, unspecified type | CPT/HCPCS: 95806 ==

== ENCOUNTER → 2022-09-04 | Outpatient (CLI) | payer OTHER, SELFPAY | END | disposition home or self-care (01) | LOC: SL 20:38 | PROVIDERS: PCP Family Medicine; Referring Provider Internal Medicine Critical Care Medicine; Visit Provider Internal Medicine Critical Care Medicine | DX: G47.33 Obstructive sleep apnea (adult) (pediatric) (principal) | CPT/HCPCS: 95810 ==

== ENCOUNTER → 2022-09-19 | Outpatient (CLI) | payer OTHER, SELFPAY ==
[2022-09-19 12:18] LABS: Absolute Lymphocyte Count 2.15 X10^3/uL (0.83-4.51); Basophil# 0.06 X10^3/uL; Eosinophil# 0.22 X10^3/uL; Eosinophils% 3.6 % (0-5); Hematocrit 46.2 % (40-54); Hemoglobin 15.4 g/dL (13.0-16.5); Lymphocyte # 2.15 X10^3/ul (0.83-4.51); Lymphocyte % 35.5 % (19-41); Mean Corp Hgb Conc 33.3 g/dL (32-36); Mean Corpuscular Hgb 29.4 pg (27.0-32.0); Mean Corpuscular Volume 88.2 fL (80-94); Monocyte% 9.9 % (0-10); NRBC Flagged by Analyzer 0 % (0-5); Neutrophil # 3.02 X10^3/uL (2.7-7.7); Neutrophil % 49.8 % (47-70); Platelet Count 286 K/mm3 (150-450); RBC Distribution Width CV 12.7 % (11.6-14.6); RBC Distribution Width SD 41.1 fl (35.1-43.9); Red Blood Count 5.24 M/mm3 (4.6-6.2); White Blood Count 6.1 K/mm3 (4.4-11.0)
[2022-09-19 12:34] LABS: Vitamin D,25 Hydroxy 50.5 ng/mL
[2022-09-19 12:37] LABS: ALB/GLOB Ratio 1.1 RATIO (0.9-2.4); AST(SGOT) 27 U/L (15-37); Alanine Aminotransfer ALT/SGPT 28 U/L (16-61); Alkaline Phosphatase 68 U/L (45-117); Anion Gap 6 (5-15); BUN 25 mg/dL (7-18); BUN/Creat Ratio 30.5 RATIO (10-20); Calcium,Total 9.8 mg/dL (8.5-10.1); Chloride 106 mmol/L (98-107); Creatinine, Serum 0.82 mg/dL (0.70-1.30); EST Glomerular Filtration Rate 107 mL/min (>60); Est Glom Filt Rate - Afr Amer 130 mL/min (>60); Globulin 3.7 g/dL (2.2-4.2); Glucose 84 mg/dL (74-106); Potassium 4.3 mmol/L (3.5-5.1); Protein, Total 7.7 g/dL (6.4-8.2); Sodium Level 138 mmol/L (136-145)
== END | disposition home or self-care (01) ==
LOC: MFPLAB 09:45
PROVIDERS: PCP Family Medicine; Referring Provider Family Medicine; Visit Provider Family Medicine
DX: J45.909 Unspecified asthma, uncomplicated (principal); E55.9 Vitamin D deficiency, unspecified
CPT/HCPCS: 36415; 80053; 82306; 85025

== ENCOUNTER → 2023-09-16 | Outpatient (CLI) | payer OTHER, SELFPAY ==
[2023-09-16 12:57] LABS: Vitamin D,25 Hydroxy 45.4 ng/mL
[2023-09-16 13:05] LABS: ALB/GLOB Ratio 1.1 RATIO (0.9-2.4); AST(SGOT) 25 U/L (15-37); Alanine Aminotransfer ALT/SGPT 30 U/L (16-61); Alkaline Phosphatase 70 U/L (45-117); Anion Gap 3 (5-15); BUN 17 mg/dL (7-18); BUN/Creat Ratio 19.2 RATIO (10-20); Calcium,Total 9.3 mg/dL (8.5-10.1); Chloride 105 mmol/L (98-107); Creatinine, Serum 0.89 mg/dL (0.70-1.30); EST Glomerular Filtration Rate 98 mL/min (>60); Est Glom Filt Rate - Afr Amer 118 mL/min (>60); Globulin 3.7 g/dL (2.2-4.2); Glucose 94 mg/dL (74-106); Potassium 4.1 mmol/L (3.5-5.1); Protein, Total 7.7 g/dL (6.4-8.2); Sodium Level 138 mmol/L (136-145)
[2023-09-20 16:07] LABS: Beef <0.10 kU/L (Class 0); Chocolate <0.10 kU/L (Class 0); Codfish <0.10 kU/L (Class 0); Corn 0.28 kU/L (Class 0/I); Egg, Whole <0.10 kU/L (Class 0); Milk (Cow) 0.17 kU/L (Class 0/I); Mussels <0.10 kU/L (Class 0); Pork <0.10 kU/L (Class 0); Salmon <0.10 kU/L (Class 0); Shrimp 0.15 kU/L (Class 0/I); Soybean 0.93 kU/L (Class II); Tuna <0.10 kU/L (Class 0); Wheat 0.29 kU/L (Class 0/I)
== END | disposition home or self-care (01) ==
LOC: MFPLAB 09:58
PROVIDERS: PCP Family Medicine; Visit Provider Family Medicine
DX: E55.9 Vitamin D deficiency, unspecified (principal); Z91.018 Allergy to other foods
CPT/HCPCS: 36415; 80053; 82306; 86003; 86005

== ENCOUNTER → 2024-04-20 | Outpatient (CLI) | payer OTHER, SELFPAY ==
--- NOTE | 2024-04-20 09:23 | RAD_ITS ---
STUDY: X-RAY - LEFT ANKLE REASON FOR EXAM: Male, 48 years old. Pain. TECHNIQUE: 3 views of the left ankle. COMPARISON: None. FINDINGS: Normal visualized distal tibia and fibula. Normal medial and lateral malleoli. Normal tibiotalar articulation and ankle mortise. Normal visualized talus and calcaneus. The visualized subtalar, talonavicular, calcaneocuboid and tarsal articulations are normal. There is no demonstrated fracture. The soft tissue structures are unremarkable. RAD/Ankle min 3 Views IMPRESSION: Normal x-ray examination of the left ankle. Electronically Signed: Jed Woods MD at 9:56 EDT ,
[2024-04-20 11:31] LABS: AST(SGOT) 31 U/L (15-37); Alanine Aminotransfer ALT/SGPT 29 U/L (16-61); Albumin, Serum 3.9 g/dL (3.2-5.0); Alkaline Phosphatase 71 U/L (45-117); Anion Gap 7 (5-15); BUN 31 mg/dL (7-18); Calcium,Total 9.5 mg/dL (8.5-10.1); Chloride 105 mmol/L (98-107); Creatinine, Serum 0.86 mg/dL (0.70-1.30); EST Glomerular Filtration Rate 101 mL/min (>60); Est Glom Filt Rate - Afr Amer 122 mL/min (>60); Globulin 3.8 g/dL (2.2-4.2); Glucose 92 mg/dL (74-106); Potassium 3.9 mmol/L (3.5-5.1); Protein, Total 7.7 g/dL (6.4-8.2); Sodium Level 137 mmol/L (136-145)
[2024-04-20 11:48] LABS: Vitamin D,25 Hydroxy 52.2 ng/mL
== END | disposition home or self-care (01) ==
LOC: MTLAB 09:22
PROVIDERS: PCP Family Medicine; Referring Provider Family Medicine; Visit Provider Family Medicine
DX: E55.9 Vitamin D deficiency, unspecified (principal); M25.572 Pain in left ankle and joints of left foot
CPT/HCPCS: 36415; 73610; 80053; 82306

== ENCOUNTER → 2024-06-13 | Outpatient (CLI) | payer OTHER, SELFPAY ==
[2024-06-13 18:29] LABS: CRP < 2.90 mg/L (0.0-3.0)
[2024-06-15 16:10] LABS: Endomysial Antibody IgA Negative (Negative); Immunoglobulin A 121 mg/dL (90-386); t-Transglutaminase IgA 2 U/mL (0-3)
== END | disposition home or self-care (01) ==
PROVIDERS: PCP Family Medicine; Referring Provider Internal Medicine Gastroenterology; Visit Provider Internal Medicine Gastroenterology
DX: K90.0 Celiac disease (principal)
CPT/HCPCS: 36415; 82784; 83516; 86140; 86255

== ENCOUNTER → 2024-07-12 | Outpatient (CLI) | payer OTHER, SELFPAY ==
--- NOTE | 2024-07-12 15:20 | BD_ITS ---
STUDY: DUAL ENERGY X-RAY ABSORPTIOMETRY / DXA REASON FOR EXAM: Male, 49 years old. V58.65Long term steroid useBONE DENSITY REASON FOR EXAM TECHNIQUE: Bone Mineral Density (BMD) measurements of lumbar spine and bilateral hips were obtained. COMPARISON: None. FINDINGS: Lumbar Spine (L1-L4): g/cm2 (0.781) / T-score (-2.8) / Z-score (-2.5) Findings are suggestive of osteoporosis with a high fracture risk. Left Femur Total: g/cm2 (0.841) / T-score (-1.3) / Z-score (-1.0) Left Femoral Neck: g/cm2 (0.756) / T-score (-1.3) / Z-score (-0.6) Right Femur Total: g/cm2 (0.878) / T-score (-1.0) / Z-score (-0.7) Right Femoral Neck: g/cm2 (0.744) / T-score (-1.4) / Z-score (-0.7) BD/Dexa Bone Density Study IMPRESSION: The patient is considered osteoporotic as outlined below according to World [employer] Organization (WHO) criteria with a high fracture risk. Reference Information: The T-score is the number of standard deviations above or below the standard which is normal for young adults at their peak bone mineral density. The World Health Organization (WHO) interprets the T-scores as follows: Above -1 Normal bone density Between -1 and -2.5 Osteopenia Equal to / or below -2.5 Osteoporosis As a practical clinical guideline, osteopenia may be graded as follows: Mild -1 through -1.5 Moderate -1.6 through -2.0 Severe -2.1 through -2.4 The Z-score is the number of standard deviations above or below age-matched controls. A Z-score of less than -1.5 would be considered abnormal. References: 1. NIH Osteoporosis and Related Bone Diseases www osteo.org 2. International Society for Clinical Densitometry www iscd.org 3. National Osteoporosis Foundation www nof.org Electronically Signed: Law Navarro MD at 9:34 EDT ,
== END | disposition home or self-care (01) ==
LOC: OPBD 15:15
PROVIDERS: PCP Family Medicine; Referring Provider Family Medicine; Visit Provider Family Medicine
DX: K90.0 Celiac disease (principal); M81.0 Age-related osteoporosis without current pathological fracture
CPT/HCPCS: 77080

== ENCOUNTER → 2024-07-20 | Outpatient (CLI) | payer OTHER, SELFPAY ==
[2024-07-20 12:46] LABS: ALB/GLOB Ratio 1.1 RATIO (0.9-2.4); AST(SGOT) 30 U/L (15-37); Alanine Aminotransfer ALT/SGPT 25 U/L (16-61); Alkaline Phosphatase 69 U/L (45-117); Anion Gap 4 (5-15); BUN 24 mg/dL (7-18); BUN/Creat Ratio 27.4 RATIO (10-20); Calcium,Total 9.6 mg/dL (8.5-10.1); Chloride 105 mmol/L (98-107); Creatinine, Serum 0.88 mg/dL (0.70-1.30); EST Glomerular Filtration Rate 99 mL/min (>60); Est Glom Filt Rate - Afr Amer 119 mL/min (>60); Globulin 3.6 g/dL (2.2-4.2); Glucose 96 mg/dL (74-106); Potassium 3.9 mmol/L (3.5-5.1); Protein, Total 7.6 g/dL (6.4-8.2); Sodium Level 136 mmol/L (136-145)
[2024-07-20 12:47] LABS: Vitamin D,25 Hydroxy 55.8 ng/mL
== END | disposition home or self-care (01) ==
PROVIDERS: PCP Family Medicine; Visit Provider Family Medicine
DX: M81.0 Age-related osteoporosis without current pathological fracture (principal)
CPT/HCPCS: 36415; 80053; 82306